=== PATIENT | female | born 1995 | race Caucasian/White ===

== ENCOUNTER 2016-09-30 06:33 | Emergency (ER) | payer SELFPAY ==
[2016-09-30 07:03] VITALS: BP 124/77
[2016-09-30 07:59] LABS: Hematocrit 41.8 % (37.0-47.0); Hemoglobin 14.5 gm/dL (12.5-16.0); Mean Cell Volume 78.6 fl (78-100); Mean Corpuscular Hemoglobin 27.3 pg (27-31); Mean Corpuscular Hgb Conc 34.7 g/dl (32-36); Mean Platelet Volume 9.3 fl (6.0-9.5); Platelet Count 336 K/mm3 (150-450); Red Blood Count 5.32 M/mm3 (4.2-5.4); White Blood Count 13.1 K/mm3 (4.0-10.5)
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
[2016-09-30 08:22] LABS: ALT 66 U/L (19-67); AST 23 U/L (0-48); Albumin * 3.8 gm/dl (3.4-5.0); Alkaline Phosphatase * 90 U/L (50-170); Anion Gap 19.2 mmol/L (6.8-13.8); Bilirubin, Total 0.4 mg/dL (0.0-1.1); Blood Urea Nitrogen 9 mg/dL (3-23); Ca. Corrected For Albumin 8.5 mg/dL (8.4-10.2); Calcium * 8.7 mg/dL (7.9-10.9); Carbon Dioxide 19.1 mmol/L (24-32.6); Chloride 105 mmol/L (97-106); Glucose * 162 mg/dL (70-110); Potassium 3.3 mmol/L (3.4-4.6); Salicylate 3.5 mg/dL (2.8-20.0); Sodium 140 mmol/L (132-142); TSH * 3.645 uIU/mL (0.516-4.13); Total Protein 7.2 gm/dL (6.2-8.2)
[2016-09-30 09:04] LABS: Urine Bilirubin Negative (NEGATIVE); Urine Blood 250 /ul (NEGATIVE); Urine Color Yellow; Urine Ketone Negative (NEGATIVE); Urine Nitrite Positive (NEGATIVE); Urine Protein Negative (NEGATIVE); Urine Specific Gravity 1.015 SP.GR. (1.005-1.010); Urine Urobilinogen Normal (NORMAL); Urine pH 5.5 pH (5.0-7.0)
[2016-09-30 09:05] LABS: Urine Appearance Cloudy; Urine Bacteria 3+; Urine RBC 0-5 /hpf (0-5); Urine WBC 0-5 /hpf (0-5)
[2016-09-30 09:09] LABS: Cocaine Ur Negative (NEGATIVE); Urine Barbiturate Negative (NEGATIVE); Urine Benzodiazepines Negative (NEGATIVE); Urine Opiates Negative (NEGATIVE); Urine PCP Negative (NEGATIVE); Urine THC Negative (NEGATIVE)
[2016-09-30] MEDS ORDERED: NICOTINE 21 MG PATC TD SCH (09:45)
[2016-09-30] MEDS ORDERED: NICOTINE 21 MG PATC TD ONE (10:22)
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
== END 2016-09-30 13:53 | disposition home or self-care (01) ==
LOC: ER 06:33
DX: F43.0 Acute stress reaction (principal); F31.9 Bipolar disorder, unspecified; F90.9 Attention-deficit hyperactivity disorder, unspecified type; E11.9 Type 2 diabetes mellitus without complications; F17.200 Nicotine dependence, unspecified, uncomplicated
CPT/HCPCS: 36415; 80053; 80307; 81001; 84443; 85025; 87077; 87086; 87186; 99285; G0480; G0481